=== PATIENT | female | born 1990 | race Caucasian/White ===

== ENCOUNTER 2021-02-23 14:34 | Emergency (ER) | payer MEDICAID, SELFPAY ==
[2021-02-23 14:35] VITALS: BP 185/109; PULSE 107; RESP 20; TEMP 36.6; O2SAT 99; BMI 58.3
[2021-02-23 14:38] VITALS: BP 185/109; PULSE 107; RESP 20; TEMP 36.6; O2SAT 99
[2021-02-23 15:13] VITALS: RESP 17; O2SAT 96; O2SAT 98
--- NOTE | 2021-02-23 15:13 | EKG12_ITS ---
Test Reason : SOB Blood Pressure : / mmHG Vent. Rate : 097 BPM Atrial Rate : 097 BPM P-R Int : 156 ms QRS Dur : 092 ms QT Int : 358 ms P-R-T Axes : 047 011 024 degrees QTc Int : 454 ms Normal sinus rhythm Minimal voltage criteria for LVH, may be normal variant Borderline ECG Confirmed by LEXI BORGES, MAKEDA ([id number]), makeup editor NATALIA DOOLEY ([id number]) on 03/01/2021 1:11:13 PM Referred By: Confirmed By:MAKEDA ELLIOTT MD
--- NOTE | 2021-02-23 15:16 | NURSING ---
NO OLD EKGS
--- NOTE | 2021-02-23 15:20 | RAD_ITS ---
STUDY: X-RAY CHEST REASON FOR EXAM: Female, 30 years old. SOB TECHNIQUE: Single AP portable view of the chest. COMPARISON: None. FINDINGS: EKG leads overlie the chest The lungs are clear and expanded. There is no demonstrated pleural abnormality. Normal size heart. Normal mediastinum and karen. Normal visualized pulmonary arteries. Normal visualized aortic arch and descending thoracic aorta. Normal visualized thoracic spine. Normal visualized ribs, clavicles, and shoulders. There is no demonstrated abnormality of the visualized soft tissue structures of the upper abdomen. RAD/Chest 1 View (Portable) IMPRESSION: Normal x-ray examination of the chest. Electronically Signed: Sergey Cortez MD at 15:31 EDT , Service support ,
[2021-02-23 15:38] VITALS: BP 162/81; PULSE 105; RESP 16; TEMP 36.6; O2SAT 96
[2021-02-23 16:03] VITALS: PULSE 114; RESP 16
[2021-02-23] MEDS: Ipratropium/Albuterol Sulfate 3 ML AMPUL.NEB INHALATION (16:03)
[2021-02-23] MEDS: MethylPREDNISolone 125 MG/2 ML Vial IV (16:07)
--- NOTE | 2021-02-23 16:15 | EX.ED.DYSGE1 ---
HPI History of Present Illness Chief Complaint: Shortness of Breath Informant: patient Onset/Context/Timing Onset: Weeks (1 week) Context: Gradual Onset Current Severity: Mild Maximum Severity: Moderate Narrative Narrative: Patient presents with a 1 week history of shortness of breath. She feels as if she is wheezing. She reports mild cough with rare sputum production. No fever or chills. No chest pain. Patient states she started lisinopril approximately 3 weeks ago. This the only new change that she can think of. She denies any throat tightness or tongue swelling. [facility] Medical History Hypertension Home Medications albuterol sulfate [Ventolin HFA] 1 - 2 puff INHALATION Q4H PRN PRN #1 inhaler 02/23/21 [Rx Last Taken Unknown] amlodipine 10 mg PO DAILY 02/23/21 [History Last Taken Unknown] hydroxyzine pamoate 25 mg PO BID 02/23/21 [History Last Taken Unknown] lisinopril 10 mg PO DAILY 02/23/21 [History Last Taken Unknown] prednisone 40 mg PO DAILY #8 tab 02/23/21 [Rx Last Taken Unknown] sertraline 100 mg PO DAILY 02/23/21 [History Last Taken Unknown] Allergy/AdvReac Type Severity Reaction Status Date / Time No Known Allergies Allergy Verified 02/23/21 14:38 Social History Smoking Status: Unknown if ever smoked [facility] ED Constitutional Constitutional ED: Denies chills or fever(s) Eyes Eyes: Denies change in vision ENT ENT ED: Denies sore throat Cardiovascular Cardiovascular: Denies chest pain Respiratory/Chest Respiratory/Chest: Reports cough and dyspnea Gastrointestinal Gastrointestinal: Denies abdominal pain, diarrhea, nausea or vomiting Genitourinary Genitourinary ED: Denies dysuria Musculoskeletal Musculoskeletal: Denies back pain Integumentary Denies rash Neurologic Neurologic: Denies headache(s) or weakness Psychiatric Psychiatric: Denies anxiety or depression Endocrine Endocrinology: Denies polydipsia or polyuria Allergic/Immunologic Allergic/Immunologic ED: Denies urticaria EXAM Physical Exam Const Vital Signs: 02/23/21 14:35 02/23/21 14:38 02/23/21 14:57 Temperature 97.9 F 97.9 F Temperature Source Temporal Temporal Pulse Rate 107 H 107 H Respiratory Rate 20 H 20 H Respiratory Effort Short of Breath Respiratory Depth Normal Respiratory Pattern Blood Pressure 185/109 H 185/109 H Blood Pressure Mean 134 134 Pulse Ox 99 99 Oxygen Delivery Method Room Air Room Air 02/23/21 15:13 02/23/21 15:38 02/23/21 16:03 Temperature 97.9 F Temperature Source Temporal Pulse Rate 105 H 114 H Respiratory Rate 17 16 16 Respiratory Effort Respiratory Depth Respiratory Pattern Normal Blood Pressure 162/81 H Blood Pressure Mean 108 Pulse Ox 96 96 Oxygen Delivery Method Room Air Room Air Positive well nourished and well developed General Appearance ED: well developed HEENT Reports normocephalic and head/scalp atraumatic Eyes PERRL and EOMs intact bilaterally Neck supple Chest Wall inspection of chest normal and palpation of chest normal Resp normal respiratory effort Auscultation: diminished lung sounds Cardio regular rhythm Rate: tachycardic GI normal to inspection, nondistended, normoactive bowel sounds Palpation: soft Extremity normal to inspection Neuro oriented x3 and no sensory deficits noted Sensorium / Orientation: alert Motor Exam: strength 5/5 throughout Psych mental status grossly normal Skin no rashes or lesions noted MDM MDM MDM Narrative Medical decision making narrative: Patient was given Solu-Medrol and a DuoNeb treatment. Labs, chest x-ray, EKG, Covid swab obtained. Lab Data Attestation: I reviewed the patient's lab results. Labs: Laboratory Results - last 24 hr 02/23/21 02/23/21 02/23/21 16:05 16:05 16:05 WBC 8.1 RBC 5.78 H Hgb 13.3 Hct 43.7 MCV 75.6 L MCH 23.0 L MCHC 30.4 L RDW Std Deviation 43.8 RDW Coeff of Nai 16.4 H Plt Count 283 MPV 10.9 Immature Gran % (Auto) 0.600 Neut % (Auto) 64.2 Lymph % (Auto) 27.0 Cherry % (Auto) 6.2 Eos % (Auto) 1.6 Baso % (Auto) 0.4 Absolute Neuts (auto) 5.2 Absolute Lymphs (auto) 2.18 Nucleated RBC % 0 D-Dimer Quant (PE/DVT) 0.34 Sodium 137 Potassium 3.5 Chloride 105 Carbon Dioxide 27.0 Anion Gap 5 BUN 9 Creatinine 0.56 Estim Creat Clear Calc 130.98 Est GFR (MDRD) Af Amer 163 Est GFR (MDRD) Non-Af 135 BUN/Creatinine Ratio 16.2 Glucose 103 Calcium 8.8 Troponin I High Sens 3.6 B-Natriuretic Peptide Serum , Qual 02/23/21 02/23/21 16:05 16:05 WBC RBC Hgb Hct MCV MCH MCHC RDW Std Deviation RDW Coeff of Nai Plt Count MPV Immature Gran % (Auto) Neut % (Auto) Lymph % (Auto) Cherry % (Auto) Eos % (Auto) Baso % (Auto) Absolute Neuts (auto) Absolute Lymphs (auto) Nucleated RBC % D-Dimer Quant (PE/DVT) Sodium Potassium Chloride Carbon Dioxide Anion Gap BUN Creatinine Estim Creat Clear Calc Est GFR (MDRD) Af Amer Est GFR (MDRD) Non-Af BUN/Creatinine Ratio Glucose Calcium Troponin I High Sens B-Natriuretic Peptide 7.0 Serum , Qual NEGATIVE Radiography Chest X-Ray - ED: 1 View, Read by ED Physician, Normal, Heart, Lungs and Mediastinum Diagnostic Testing: Radiology Impression Chest X-Ray 02/23/21 15:20 IMPRESSION: Normal x-ray examination of the chest. Electronically Signed: Sergey Cortez MD at 15:31 EDT , Service support , EKG Initial EKG: Attestation: I personally reviewed and interpreted this EKG as follows: Interpretation: Sinus Rhythm (Sinus at 97 with no acute ischemia.) Treatment and Re-Evaluation Comments:: Patient was tachycardic on my initial evaluation with heart rate in the 120s. This is improved after treatment. Patient does report subjective improvement in her shortness of breath. Lungs are clear to auscultation. Test results discussed with her. Chest x-ray per my interpretation reveals no acute infiltrate. Radiologist interpretation is reviewed. Patient be treated with a burst of steroids and an albuterol inhaler. She states her family doctor already told her to stop the lisinopril. Discharge Plan Triage Chief Complaint: Shortness of Breath ED Provider: Jennifer Beck Dx/Rx/DC Orders Clinical Impression: Bronchitis with bronchospasm Instructions: ED Bronchitis with Wheezing (Adult) Prescriptions: New prednisone 20 mg tablet 40 mg PO DAILY Qty: 8 RF: 0 albuterol sulfate [Ventolin HFA] 1 INHALER inhaler 1 - 2 puff inhalation Q4H PRN PRN (Reason: Wheezing) Qty: 1 RF: 0 No Action sertraline 100 mg tablet 100 mg PO DAILY RF: 0 amlodipine 10 mg tablet 10 mg PO DAILY RF: 0 lisinopril 10 mg tablet 10 mg PO DAILY RF: 0 hydroxyzine pamoate 25 mg capsule 25 mg PO BID RF: 0 Primary Care Provider: Kye Simon Referrals: Kye Simon DO [Primary Care Provider] - 1 Week Disposition Disposition: Home, Self Care
[2021-02-23 16:17] LABS: Absolute Lymphocyte Count 2.18 X10^3/uL (0.83-4.51); Absolute Neutrophil Count 5.2 X10^3/uL (2.0-7.7); Basophil# 0.03 X10^3/uL; Basophil% 0.4 % (0-1); Eosinophil# 0.13 X10^3/uL; Eosinophils% 1.6 % (0-5); Hematocrit 43.7 % (37-47); Hemoglobin 13.3 g/dL (12.0-15.0); Lymphocyte # 2.18 X10^3/ul (0.83-4.51); Mean Corp Hgb Conc 30.4 g/dL (32-36); Mean Corpuscular Volume 75.6 fL (81-99); Mean Platelet Vol. 10.9 fl (6.2-12.0); Monocyte% 6.2 % (0-10); NRBC Flagged by Analyzer 0 % (0-5); Neutrophil # 5.18 X10^3/uL (2.7-7.7); Neutrophil % 64.2 % (47-70); Platelet Count 283 K/mm3 (150-450); RBC Distribution Width CV 16.4 % (11.6-14.6); RBC Distribution Width SD 43.8 fl (35.1-43.9); Red Blood Count 5.78 M/mm3 (4.2-5.4); White Blood Count 8.1 K/mm3 (4.4-11.0)
[2021-02-23 16:32] LABS: D-Dimer Quantitative (DVT/PE) 0.34 FEU/ug/m (0.27-0.49)
[2021-02-23 16:34] LABS: Anion Gap 5 (5-15); BUN 9 mg/dL (7-18); BUN/Creat Ratio 16.2 RATIO (10-20); Calcium,Total 8.8 mg/dL (8.5-10.1); Chloride 105 mmol/L (98-107); Creatinine, Serum 0.56 mg/dL (0.55-1.02); EST Glomerular Filtration Rate 135 mL/min (>60); Est Glom Filt Rate - Afr Amer 163 mL/min (>60); Estimated Creatinine Clearance 130.98 ml/min; Glucose 103 mg/dL (74-106); Potassium 3.5 mmol/L (3.5-5.1); Sodium Level 137 mmol/L (136-145); Troponin-I HS 3.6 pg/mL (3.0-53.7)
[2021-02-23 17:16] LABS: Internal QC Validated? YES +Cl - CLEAR BKGD; Pregnancy, Serum, hCG Quali. NEGATIVE Negative
[2021-02-23 17:40] VITALS: BP 164/79; PULSE 81; RESP 22; O2SAT 97
--- NOTE | 2021-02-23 17:41 | ED.RN ---
THIS NURSE REVIEWED D/C INSTRUCTIONS WITH PT. PT VERBALIZED UNDERSTANDING OF INSTRUCTIONS. IV D/C. IV CATHETER INTACT. PT TOLERATED WELL. PT DENIES FURTHER NEEDS OR QUESTIONS AT THIS TIME. PT AMBULATES FROM ROOM ON OWN WITHOUT ASSISTANCE FROM STAFF
== END 2021-02-23 17:42 | disposition home or self-care (01) ==
PROVIDERS: Emergency Provider Emergency Medicine; PCP Student in an Organized Health Care Education/Training Program
DX: J40 Bronchitis, not specified as acute or chronic (principal); I10 Essential (primary) hypertension; Z79.899 Other long term (current) drug therapy
CPT/HCPCS: 71045; 80048; 83880; 84484; 84703; 85025; 85379; 87426; 93005; 94640; 94760; 96374; 99284

== ENCOUNTER 2021-10-19 07:44 | Outpatient (CLI) | payer MEDICAID, SELFPAY ==
[2021-10-19 10:14] LABS: Anion Gap 8 (5-15); BUN 9 mg/dL (7-18); BUN/Creat Ratio 13.5 RATIO (10-20); Calcium,Total 8.9 mg/dL (8.5-10.1); Chloride 105 mmol/L (98-107); Creatinine, Serum 0.67 mg/dL (0.55-1.02); EST Glomerular Filtration Rate 108 mL/min (>60); Est Glom Filt Rate - Afr Amer 131 mL/min (>60); Glucose 111 mg/dL (74-106); Potassium 3.6 mmol/L (3.5-5.1); Sodium Level 139 mmol/L (136-145)
== END 2021-10-19 23:59 | disposition home or self-care (01) ==
LOC: LAB 07:45
PROVIDERS: PCP Student in an Organized Health Care Education/Training Program; Visit Provider Student in an Organized Health Care Education/Training Program
DX: R06.81 Apnea, not elsewhere classified (principal); R06.83 Snoring; I10 Essential (primary) hypertension; G25.0 Essential tremor
CPT/HCPCS: 36415; 80048

== ENCOUNTER → 2022-07-31 | Outpatient (CLI) | payer MEDICAID, SELFPAY ==
[2022-07-31 12:46] LABS: Anion Gap 3 (5-15); BUN 9 mg/dL (7-18); BUN/Creat Ratio 15.7 RATIO (10-20); Calcium,Total 8.7 mg/dL (8.5-10.1); Chloride 106 mmol/L (98-107); Cholesterol 157 mg/dL (200); Creatinine, Serum 0.57 mg/dL (0.55-1.02); EST Glomerular Filtration Rate 129 mL/min (>60); Est Glom Filt Rate - Afr Amer 156 mL/min (>60); Glucose 103 mg/dL (74-106); High Density Lipoprotein 42 mg/dL; Potassium 3.9 mmol/L (3.5-5.1); Sodium Level 137 mmol/L (136-145); Triglycerides 94 mg/dL; Very Low Density Lipoprotein 19 mg/dL (5-40)
[2022-07-31 12:54] LABS: Hemoglobin A1c 5.6 % (3.8-5.6)
== END | disposition home or self-care (01) ==
LOC: LAB 11:11
PROVIDERS: PCP Student in an Organized Health Care Education/Training Program; Visit Provider Student in an Organized Health Care Education/Training Program
DX: Z00.00 Encounter for general adult medical examination without abnormal findings (principal); R73.03 Prediabetes; Z13.220 Encounter for screening for lipoid disorders; I10 Essential (primary) hypertension
CPT/HCPCS: 36415; 80048; 80061; 83036

== ENCOUNTER → 2023-10-03 | Outpatient (CLI) | payer MEDICAID, SELFPAY ==
--- OUTSIDE RECORDS SUMMARY | 2023-10-03 11:46 | XMS RPT_ITS | CCD ---
Author Name Unknown Address [address] [place] [address] Organization [facility] Care Team Providers Care Diet Kitchen Cook Name Role Phone Maribell Maher DO Primary Care Provider [phone] SHARA GRAYSON Referring Unavailable MARIBELL MAHER Primary Care Unavailable SHARA GRAYSON Referring Unavailable MARIBELL MAHER Primary Care Unavailable ROMAR DO, DR REYNA Primary Care Physician [phone] ROMAR DO, DR REYNA Attending Unavailable ROMAR DO, DR REYNA Primary Care Unavailable ROMAR DO, DR REYNA Attending Unavailable ROMAR DO, DR REYNA Primary Care Unavailable ROMAR DO, DR REYNA Attending Unavailable ROMAR DO, DR REYNA Primary Care Unavailable ROMAR DO, DR REYNA Attending Unavailable ROMAR DO, DR REYNA Primary Care Unavailable ROMAR DO, DR REYNA Attending Unavailable ROMAR DO, DR REYNA Primary Care Unavailable ROMAR DO, DR REYNA Attending Unavailable ROMAR DO, DR REYNA Primary Care Unavailable ROMAR DO, DR REYNA Attending Unavailable ROMAR DO, DR REYNA Primary Care Unavailable ROMAR DO, DR REYNA Attending Unavailable ROMAR DO, DR REYNA Primary Care Unavailable SHARA GRAYSON Referring Unavailable MARIBELL MAHER Primary Care Unavailable SHARA GRAYSON Attending Unavailable MARIBELL MAHER Primary Care Unavailable SHARA GRAYSON Referring Unavailable SHARA GRAYSON Attending Unavailable MARIBELL MAHER Primary Care Unavailable SHARA GRAYSON Attending Unavailable MARIBELL MAHER Primary Care Unavailable Allergies Allergy Classification Reported Allergen(s) Allergy Type Date of Onset Reaction(s) Facility (5 sources) Lisinopril; Translations: [lisinopril] Drug Allergy Dyspnea (finding) [facility] Medications Current Medications Medication Drug Class(es) Dates Sig (Normalized) Sig (Original) DME [facility]IS[facility]aneous (5 sources) Start: 07-04-2023 DME [facility]ISCellaneous See Instructions, Libre3 Sensors #2 sensors. Apply sensor to arm once every 14 days to monitor blood sugar. DX E11.69, # 2 EA, 11 Refill(s), Pharmacy: [facility]/pharmacy #[id number], 165.2, cm, 07/04/23 10:26:00 EST, Height, 152.6, kg, 07/04/23 10:26:00 EST, Dosing Weight Start Date: 07/04/23 Status: Ordered folic acid 1 mg oral tablet (7 sources) Start: 09-30-2023 take 1 tablet by mouth once daily folic acid 1 mg tablet Indications: Psoriasis , Polyarticular psoriatic arthritis (HCC) TAKE 1 TABLET BY MOUTH EVERY DAY 90 tablet 1 09/30/2023 Active Completed/Discontinued Medications Medication Drug Class(es) Dates Sig (Normalized) Sig (Original) cholecalciferol 1.25 mg oral capsule (10 sources) Vitamin D Start: 04-17-2023 End: 07-08-2023 cholecalciferol, Vitamin D3, (VITAMIN D3) 1,250 mcg (50,000 unit) cap capsule Indications: vitamin D deficiency TAKE VITAMIN D 50,000 UNITS ONCE EVERY WEEK X 12 WEEKS THEN 2000 UNITS DAILY OVER THE COUNTER AFTER 12 capsule 0 07/08/2023 Active Problems Problem Classification Problem Date Documented Da te Episodic/Chronic Anxiety disorders (5 sources) Generalized anxiety disorder 07-07-2020 Chronic Conditions associated with dizziness or vertigo (5 sources) Dizziness 07-07-2020 Episodic Diabetes mellitus with complications (5 sources) Type 2 diabetes mellitus in obese 05-28-2023 Chronic Disorders of lipid metabolism (3 sources) Hyperlipidemia 09-08-2023 Chronic Disorders usually diagnosed in infancy, childhood, or adolescence (5 sources) Autism spectrum disorder 11-02-2021 Chronic Essential hypertension (7 sources) Hypertensive disorder; Translations: [Essential (primary) hypertension] Onset: 09-04-2023 10-06-2020 Chronic Fever of unknown origin (3 sources) Intermittent fever 08-28-2023 Episodic Headache; including migraine (5 sources) Headache 07-07-2020 Episodic Malaise and fatigue (5 sources) Fatigue 07-07-2020 Episodic Menstrual disorders (10 sources) Menorrhagia 07-07-2020 Chronic Mood disorders (5 sources) Recurrent major depressive episodes, moderate 07-07-2020 Chronic Nutritional deficiencies (4 sources) Vitamin D deficiency; Translations: [Vitamin D deficiency, unspecified] Onset: 04-11-2023 04-02-2023 Chronic Other and ill-defined heart disease (5 sources) Left ventricular hypertrophy 10-06-2020 Chronic Other ear and sense organ disorders (5 sources) Impacted cerumen 09-22-2020 Episodic Other ear and sense organ disorders (5 sources) Tinnitus 07-07-2020 Episodic Other female genital disorders (5 sources) Vaginal discharge 07-07-2020 Episodic Other gastrointestinal disorders (5 sources) Constipation 07-07-2020 Episodic Other hereditary and degenerative nervous system conditions (5 sources) Essential tremor 08-24-2021 Chronic Other inflammatory condition of skin (2 sources) Psoriasis; Translations: [Psoriasis, unspecified] 09-05-2023 Chronic Other inflammatory condition of skin (2 sources) Psoriatic arthritis; Translations: [Other psoriatic arthropathy] 09-05-2023 Chronic Other inflammatory condition of skin (1 source) Other psoriatic arthropathy; Translations: [Polyarticular psoriatic arthritis (HCC)] Onset: 09-05-2023 Chronic Other inflammatory condition of skin (1 source) Psoriasis, unspecified; Translations: [Psoriasis] Onset: 09-05-2023 Chronic Other injuries and conditions due to external causes (5 sources) Motion sickness 02-08-2022 Episodic Other lower respiratory disease (5 sources) Snoring 08-24-2021 Episodic Other nervous system disorders (5 sources) Carpal tunnel syndrome 04-27-2021 Chronic Other nervous system disorders (5 sources) Poor concentration 11-17-2020 Chronic Other non-traumatic joint disorders (8 sources) Multiple joint pain; Translations: [Pain in unspecified joint] 04-02-2023 Episodic Other non-traumatic joint disorders (2 sources) Pain in unspecified joint; Translations: [Pain in joint, multiple sites] Onset: 04-11-2023 Episodic Other non-traumatic joint disorders (5 sources) Shoulder pain 01-29-2021 Episodic Other nutritional; endocrine; and metabolic disorders (5 sources) Body mass index 40+ - severely obese 08-24-2021 Chronic Other nutritional; endocrine; and metabolic disorders (2 sources) Morbid obesity 01-02-2023 Chronic Other skin disorders (5 sources) Acquired disorder of keratinization 10-06-2020 Episodic Other skin disorders (5 sources) Pigmented skin lesion of uncertain nature 11-02-2021 Episodic Other skin disorders (5 sources) Skin tag 09-22-2020 Episodic Other upper respiratory disease (5 sources) Pain in throat 2020 Episodic Residual codes; unclassified (5 sources) Obstructive sleep apnea of adult 11-02-2021 Chronic Residual codes; unclassified (5 sources) Flushing 05-28-2023 Episodic Spondylosis; intervertebral disc disorders; other back problems (1 source) Low back pain; Translations: [Low back pain, unspecified back pain laterality, unspecified chronicity, unspecified whether sciatica present] 09-05-2023 Episodic Substance-related disorders (5 sources) Marijuana user 01-02-2023 Episodic Unclassified (5 sources) Pain of knee region 07-18-2022 Unclassified (5 sources) Patient encounter status 07-15-2022 Unclassified (1 source) Low back pain, unspecified back pain laterality, unspecified chronicity, unspecified whether sciatica present; Translations: [Low back pain, unspecified back pain laterality, unspecified chronicity, unspecified whether sciatica present] Onset: 09-05-2023 Results Test Name Value Interpretation Reference Range Facil ity Vital Signs Date Time Vital Sign Value Performing Clinician Facility 09-05-2023 09:52-0500 Body height 162.6 cm Shara Grayson MD Work Phone: [facility] 09-05-2023 09:52-0500 Body temperature 98.29 [degF] Shara Grayson MD Work Phone: [facility] 09-05-2023 09:52-0500 Body weight 158.76 kg Shara Grayson MD Work Phone: [facility] 09-05-2023 09:52-0500 Diastolic blood pressure 82 mm[Hg] Shara Grayson MD Work Phone: [facility] 09-05-2023 09:52-0500 Heart rate 97 /min Shara Grayson MD Work Phone: [facility] 09-05-2023 09:52-0500 Respiratory rate 14 /min Shara Grayson MD Work Phone: [facility] 09-05-2023 09:52-0500 Systolic blood pressure 142 mm[Hg] Shara Grayson MD Work Phone: [facility] 07-04-2023 11:52-0500 Body height 165.[address] MARIBELL MAHER DO [facility] 07-04-2023 11:52-0500 Body weight 55.92 kg/m2 DR MARIBELL MAHER DO [facility] 07-04-2023 11:52-0500 Body weight 152.[address] MARIBELL MAHER DO [facility] Encounters Encounter Date Encounter Type Care Provider Facility Start: 09-29-2023 Refill Mame linton PA-C Work Phone: [facility] [place] [facility] Procedures Date Procedure Procedure Detail Performing Clinician Tonsillectomy DR MARIBELL MAHER DO Plan of Treatment Date Care Activity Detail Author Start: 09-22-2030 Urine microalbumin profile DTaP,Tdap,Td Vaccine (7 - Td or Tdap) [facility] Start: 09-05-2023 End: 12-05-2023 25-hydroxyvitamin D3 [Mass/volume] in Serum or Plasma [facility] Work Phone: Immunizations Immunization Date Immunization Notes Care Provider Fa vickity 09-22-2020 tetanus toxoid, redu doe diphtheria toxoid, and acellular pertussis vaccine, adsorbed; Translations: [Boostrix (Tdap)] DR MARIBELL MAHER DO [facility] 10-21-2002 measles/mumps/rubell a virus vaccine DR MARIBELL MAHER DO [facility] 11-14-1994 poli[address] vaccine, inactivated DR MARIBELL MAHER DO [facility] 02-17-1991 measles/mumps/rubell a virus vaccine DR MARIBELL MAHER DO [facility] 02-17-1991 poliovirus vaccine, inactivated DR MARIBELL MAHER DO [facility] 1989 poli[address] vaccine, inactivated DR MARIBELL MAHER DO [facility] 1989 poliovirus vaccine, inactivated DR MARIBELL MAHER DO [facility] Payers Date Payer Category Payer Medicaid [facility] MEDICAID [id number] 2022-Present [phone] [address] [place] [address] Medicaid [id number] 2022 Medicaid [id number] 1989 Unknown [id number] 1989 Unknown [id number] 1989 Unknown [id number] 1989 Unknown [id number] 1989 Unknown [id number] 1989 Unknown [id number] 1989 Unknown [id number] 1989 Unknown [id number] Social History Date Type Detail Facility Tobacco smoking stat us NHIS Tobacco smoking consumption unknown [facility] Start: 04-02-2023 End: 09-05-2023 History of Social function [facility] Start: 04-02-2023 End: 09-05-2023 Area Deprivation Index [facility] National Score (1-10 0), lower number is lower risk 57 [facility] Start: 1990 Sex Assigned At Not on file [facility] Start: 07-05-2021 End: 09-05-2023 Tobacco smoking status Never smoked tobacco (finding) [facility] Sex Assigned At Sex [facility] Start: 09-05-2023 Tobacco use and exposure Smoke less tobacco non-user [facility] Start: 09-05-2023 Alcohol intake Lifetime non-d jhoana (finding) [facility] Clinical Notes 04-02-2023 to 09-29-2023 Telephone Encounter - Florence Farooq LPN - 09/29/2023 4:39 PM ESTTelephone Encounter - Tressa Hernadez MA - 09/29/2023 3:59 PM ESTTelephone Encounter - Mame Holman PA-C - 09/29/2023 3:52 PM EST Note Date & Type Note Facility 09-29-2023 Miscellaneous Notes Pharmacy requesting the following refill. Pharmacy comment: REQUEST FOR 90 DAYS PRESCRIPTION. DX Code Needed. Requested Prescriptions Pending Prescriptions Disp Refills methotrexate 2.5 mg tablet [Pharmacy Med Name: METHOTREXATE 2.5 MG TABLET] 72 tablet 1 Sig: TAKE 6 TABLETS BY MOUTH ONE TIME A WEEK. DIRECTED. folic acid 1 mg tablet [Pharmacy Med Name: FOLIC ACID 1 MG TABLET] 90 tablet 1 Sig: TAKE 1 TABLET BY MOUTH EVERY DAY Patient last appointment: 09/10/2023 Next Appointment: 10/15/2023 Patient Phone numbers: [phone] (home) Request is for script(s) to be escript to pharmacy. [facility]/pharmacy #[id number] - [place] [address] - [address] [phone] [id number] Florence Farooq LPN documented in this encounter [facility] 09-29-2023 Miscellaneous Notes Lvm and gave the info. Please make sure she knows to stop 50,000 units weekly. Start 2000 units daily over the counter Pharmacy faxed requesting the following refill. Requested Prescriptions Pending Prescriptions Disp Refills cholecalciferol, Vitamin D3, (VITAMIN D3) 1,250 mcg (50,000 unit) cap capsule [Pharmacy Med Name: VITAMIN D3 1,250 MCG CAPSULE] 12 capsule 0 Sig: TAKE 1 CAPSULE BY MOUTH ONCE EVERY WEEK X 12 WEEKS THEN 2000 UNITS DAILY OVER THE COUNTER AFTER Patient last appointment: 09/05/2023 Next Appointment: 10/19/2023 Patient Phone numbers: [phone] (home) Request is for script(s) to be escript to pharmacy. Tressa Hernadez MA documented in this encounter [facility] 09-10-2023 Note HNO ID: [id number] Author: SHARA GRAYSON MD Service: ? Author Type: Physician Type: Progress Notes Filed: 09/10/2023 11:12 Note Text: RHEUMATOLOGY PROGRESS NOTE Patient is here for a follow up visit for No chief complaint on file. HPI: Sandra Carvajal is a 33 year old female who presents joint pain She started with MTX and had severe side effects, nausea, vomiting. Therefore stopped. Still has psoriasis, low back pain. Back pain is radiating. Also has knee pain, hand pain and elbow pain, more in the mornings wit some swelling and stiffness. Brief Rheumatological history - joint pain. Joint pain, several years. No preceding trauma, health issues. Pain over knees, elbows, knuckles. H/o carpal tunnel? No swelling. Pain is worse towards the end of the day. She has tried OTC ibuprofen, heat pad. Chronic back pain. Radiating. Psoriasis, uses creams. Saw derm. Family h/o autoimmune disease - none Smoking - never Rheumatology REVIEW OF SYSTEMS: Constitutional: Recent Weight Change: No Fatigue: YES Fever: No Night sweats: No Heent: Alopecia: No H/o Inflammatory eye disease (iritis/scleritis): No Hearing loss: No Frequent sinusitis: No Oral ulcers: No Sicca: YES dry eyes Parotid swelling: No Hoarseness: No Dysphagia: No Heme/lymph: Lymphadenopathy: No Hematological abnormalities (anemia, thrombocytopenia, leukopenia): No Abnormal bleeding: No Skin: Malar or discoid lesions: No Photosensitivity: No Other rashes: No Raynaud's phenomenon: No Hives: No Tightness: No Nodules/bumps: No Easy Bruising: No Nail changes: No H/o psoriasis: No Gastroenterology: Nausea: No Vomiting: No Change in bowel movements: YES diarrhea. Heartburn: No Respiratory: Dry cough/SOB: No Cardiovascular: Pain in chest: No Musculoskeletal: Per HPI Genitourinary: Vaginal dryness: No Rash/ulcers: No Neurological: Headaches: YES Sensitivity or pain of hands and/or feet: No Psychiatry: Anxiety: YES Depression: YES Poor sleep: YES mainly due to knee pain. H/o loss: No H/o thrombosis: No Increased susceptibility to infection: No No past medical history on file. PAST SURGICAL HISTORY Procedure Laterality Date EXTRACTION ERUPTED TOOTH/EXR [place]eth TONSILLECTOMY AND ADENOIDECTOMY History Review: I have reviewed and modified as needed, the following during this visit: Allergies, Past Medical History, Past Surgical History, Past Family History, Past Social History. There were no vitals taken for this visit. Physical Exam GENERAL: Well appearing, alert, comfortable, in no acute distress, well-hydrated, well nourished. HEENT: Negative for external ears normal. Canals are clear. Both TMs visualized and are normal. Eye Exam normal. External nose normal, no nasal ulcer or throat ulcer. NECK: NECK Supple, no adenopathy; thyroid symmetric, normal size, no bruits CARDIAC: regular rate and rhythm, No murmur asculated., and Equal peripheral pulses RESPIRATORY: Lungs clear to auscultation. No wheezing, rhonchi, rales VASCULAR: RRR without murmur, gallop, or rubs. No ectopy. NEURO: Motor and sensory exam normal MOTOR: Normal; including tone, gait, stressed gait, power and coordination. SKIN: Negative for alopecia, skin rash, malar rash, skin lesion, skin ulcer, pits, thickening, color changes, telangiectasias, nail changes, nail ridging, nail pitting, onycholysis MUSCULOSKELETAL: DIPS: Normal PIPS: Normal MCPs: Normal Wrists: Normal Elbows: Normal Shoulders: Normal C-Spine: Normal Hips: Normal Knees: Normal Ankles: Normal MTPs / Toes: Normal Arches: Normal Lab Results: No results found for this basename: gluc, K, NA, CHLOR, CO2, CREAT, BUN, ANION, CA, TPROT, ALB, TBILI, ALKPHOS, AST,ALT,WBC,HB,PLT,wsr,crp Serology: ANTWON, RF neg Radiology: Assessment and Plan (M25.50) Pain in joint, multiple sites (primary encounter diagnosis) 33-year-old female is here for chronic pain. She has personal history of psoriasis which is well controlled. Denies joint swelling, uveitis, colitis or strong family history of autoimmune diseases. Likelihood of psoriatic arthritis cannot be ruled out however we will evaluate with below labs and x-rays. ANTWON and rheumatoid factor have been negative. We also discussed about proper sleep, good mood, regular exercise and healthy diet. PT and pain management referral for low back pain Cannot rule of PsA. Side effect to MTX. Can do SSZ. Discussed risks and benefits. Sending info. No orders found for this visit on 09/10/23. No orders of the defined types were placed in this encounter. No follow-ups on file. Shara Grayson MD [facility] 09-10-2023 History of Presen t illness Narrative RHEUMATOLOGY PROGRESS NOTE Patient is here for a follow up visit for No chief complaint on file. HPI: Sandra Carvajal is a 33 year old female who presents joint pain She started with MTX and had severe side effects, nausea, vomiting. Therefore stopped. Still has psoriasis, low back pain. Back pain is radiating. Also has knee pain, hand pain and elbow pain, more in the mornings wit some swelling and stiffness. Brief Rheumatological history - joint pain. Joint pain, several years. No preceding trauma, health issues. Pain over knees, elbows, knuckles. H/o carpal tunnel? No swelling. Pain is worse towards the end of the day. She has tried OTC ibuprofen, heat pad. Chronic back pain. Radiating. Psoriasis, uses creams. Saw derm. Family h/o autoimmune disease - none Smoking - never Rheumatology REVIEW OF SYSTEMS: Constitutional: Recent Weight Change: No Fatigue: YES Fever: No Night sweats: No Heent: Alopecia: No H/o Inflammatory eye disease (iritis/scleritis): No Hearing loss: No Frequent sinusitis: No Oral ulcers: No Sicca: YES dry eyes Parotid swelling: No Hoarseness: No Dysphagia: No Heme/lymph: Lymphadenopathy: No Hematological abnormalities (anemia, thrombocytopenia, leukopenia): No Abnormal bleeding: No Skin: Malar or discoid lesions: No Photosensitivity: No Other rashes: No Raynaud's phenomenon: No Hives: No Tightness: No Nodules/bumps: No Easy Bruising: No Nail changes: No H/o psoriasis: No Gastroenterology: Nausea: No Vomiting: No Change in bowel movements: YES diarrhea. Heartburn: No Respiratory: Dry cough/SOB: No Cardiovascular: Pain in chest: No Musculoskeletal: Per HPI Genitourinary: Vaginal dryness: No Rash/ulcers: No Neurological: Headaches: YES Sensitivity or pain of hands and/or feet: No Psychiatry: Anxiety: YES Depression: YES Poor sleep: YES mainly due to knee pain. H/o loss: No H/o thrombosis: No Increased susceptibility to infection: No No past medical history on file. PAST SURGICAL HISTORY Procedure Laterality Date EXTRACTION ERUPTED TOOTH/EXR [place]eth TONSILLECTOMY & ADENOIDECTOMY <AGE 12 History Review: I have reviewed and modified as needed, the following during this visit: Allergies, Past Medical History, Past Surgical History, Past Family History, Past Social History. There were no vitals taken for this visit. Physical Exam GENERAL: Well appearing, alert, comfortable, in no acute distress, well-hydrated, well nourished. HEENT: Negative for external ears normal. Canals are clear. Both TMs visualized and are normal. Eye Exam normal. External nose normal, no nasal ulcer or throat ulcer. NECK: NECK Supple, no adenopathy; thyroid symmetric, normal size, no bruits CARDIAC: regular rate and rhythm, No murmur asculated., and Equal peripheral pulses RESPIRATORY: Lungs clear to auscultation. No wheezing, rhonchi, rales VASCULAR: RRR without murmur, gallop, or rubs. No ectopy. NEURO: Motor and sensory exam normal MOTOR: Normal; including tone, gait, stressed gait, power and coordination. SKIN: Negative for alopecia, skin rash, malar rash, skin lesion, skin ulcer, pits, thickening, color changes, telangiectasias, nail changes, nail ridging, nail pitting, onycholysis MUSCULOSKELETAL: DIPS: Normal PIPS: Normal MCPs: Normal Wrists: Normal Elbows: Normal Shoulders: Normal C-Spine: Normal Hips: Normal Knees: Normal Ankles: Normal MTPs / Toes: Normal Arches: Normal Lab Results: No results found for this basename: gluc, K, NA, CHLOR, CO2, CREAT, BUN, ANION, CA, TPROT, ALB, TBILI, ALKPHOS, AST,ALT,WBC,HB,PLT,wsr,crp Serology: ANTWON, RF neg Radiology: Assessment and Plan (M25.50) Pain in joint, multiple sites (primary encounter diagnosis) 33-year-old female is here for chronic pain. She has personal history of psoriasis which is well controlled. Denies joint swelling, uveitis, colitis or strong family history of autoimmune diseases. Likelihood of psoriatic arthritis cannot be ruled out however we will evaluate with below labs and x-rays. ANTWON and rheumatoid factor have been negative. We also discussed about proper sleep, good mood, regular exercise and healthy diet. PT and pain management referral for low back pain Cannot rule of PsA. Side effect to MTX. Can do SSZ. Discussed risks and benefits. Sending info. No orders found for this visit on 09/10/23. No orders of the defined types were placed in this encounter. No follow-ups on file. Shara Grayson MD documented in this encounter [facility] 09-08-2023 Miscellaneous Notes Internal referral Pain mgt Conf #[id number] Reina Pollack documented in this encounter [facility] 09-05-2023 Note HNO ID: [id number] Author: SHARA GRAYSON MD Service: ? Author Type: Physician Type: Progress Notes Filed: 09/05/2023 10:37 Note Text: RHEUMATOLOGY PROGRESS NOTE Patient is here for a follow up visit for Patient presents with: Joint Pain HPI: Sandra Carvajal is a 33 year old female who presents joint pain Still has psoriasis, low back pain. Back pain is radiating. Also has knee pain, hand pain and elbow pain, more in the mornings wit some swelling and stiffness. Brief Rheumatological history - joint pain. Joint pain, several years. No preceding trauma, health issues. Pain over knees, elbows, knuckles. H/o carpal tunnel? No swelling. Pain is worse towards the end of the day. She has tried OTC ibuprofen, heat pad. Chronic back pain. Radiating. Psoriasis, uses creams. Saw derm. Family h/o autoimmune disease - none Smoking - never Rheumatology REVIEW OF SYSTEMS: Constitutional: Recent Weight Change: No Fatigue: YES Fever: No Night sweats: No Heent: Alopecia: No H/o Inflammatory eye disease (iritis/scleritis): No Hearing loss: No Frequent sinusitis: No Oral ulcers: No Sicca: YES dry eyes Parotid swelling: No Hoarseness: No Dysphagia: No Heme/lymph: Lymphadenopathy: No Hematological abnormalities (anemia, thrombocytopenia, leukopenia): No Abnormal bleeding: No Skin: Malar or discoid lesions: No Photosensitivity: No Other rashes: No Raynaud's phenomenon: No Hives: No Tightness: No Nodules/bumps: No Easy Bruising: No Nail changes: No H/o psoriasis: No Gastroenterology: Nausea: No Vomiting: No Change in bowel movements: YES diarrhea. Heartburn: No Respiratory: Dry cough/SOB: No Cardiovascular: Pain in chest: No Musculoskeletal: Per HPI Genitourinary: Vaginal dryness: No Rash/ulcers: No Neurological: Headaches: YES Sensitivity or pain of hands and/or feet: No Psychiatry: Anxiety: YES Depression: YES Poor sleep: YES mainly due to knee pain. H/o loss: No H/o thrombosis: No Increased susceptibility to infection: No No past medical history on file. PAST SURGICAL HISTORY Procedure Laterality Date EXTRACTION ERUPTED TOOTH/EXR [place]eth TONSILLECTOMY AND ADENOIDECTOMY History Review: I have reviewed and modified as needed, the following during this visit: Allergies, Past Medical History, Past Surgical History, Past Family History, Past Social History. BP 142/82 Pulse 97 Temp 36.8 ?C (98.3 ?F) (Temporal) Resp 14 Ht 162.6 cm (5' 4 ) Wt (!) 158.8 kg (350 lb) LMP (Approximate) BMI 60.08 kg/m? Physical Exam GENERAL: Well appearing, alert, comfortable, in no acute distress, well-hydrated, well nourished. HEENT: Negative for external ears normal. Canals are clear. Both TMs visualized and are normal. Eye Exam normal. External nose normal, no nasal ulcer or throat ulcer. NECK: NECK Supple, no adenopathy; thyroid symmetric, normal size, no bruits CARDIAC: regular rate and rhythm, No murmur asculated., and Equal peripheral pulses RESPIRATORY: Lungs clear to auscultation. No wheezing, rhonchi, rales VASCULAR: RRR without murmur, gallop, or rubs. No ectopy. NEURO: Motor and sensory exam normal MOTOR: Normal; including tone, gait, stressed gait, power and coordination. SKIN: Negative for alopecia, skin rash, malar rash, skin lesion, skin ulcer, pits, thickening, color changes, telangiectasias, nail changes, nail ridging, nail pitting, onycholysis MUSCULOSKELETAL: DIPS: Normal PIPS: Normal MCPs: Normal Wrists: Normal Elbows: Normal Shoulders: Normal C-Spine: Normal Hips: Normal Knees: Normal Ankles: Normal MTPs / Toes: Normal Arches: Normal Lab Results: No results found for this basename: gluc, K, NA, CHLOR, CO2, CREAT, BUN, ANION, CA, TPROT, ALB, TBILI, ALKPHOS, AST,ALT,WBC,HB,PLT,wsr,crp Serology: ANTWON, RF neg Radiology: Assessment and Plan (M54.50) Low back pain, unspecified back pain laterality, unspecified chronicity, unspecified whether sciatica present (primary encounter diagnosis) (M25.50) Pain in joint, multiple sites (E55.9) Vitamin D deficiency (L40.9) Psoriasis (L40.59) Polyarticular psoriatic arthritis (HCC) 33-year-old female is here for chronic pain. She has personal history of psoriasis which is well controlled. Denies joint swelling, uveitis, colitis or strong family history of autoimmune diseases. Likelihood of psoriatic arthritis cannot be ruled out however we will evaluate with below labs and x-rays. ANTWON and rheumatoid factor have been negative. We also discussed about proper sleep, good mood, regular exercise and healthy diet. PT and pain management referral for low back pain Cannot rule of PsA. Starting MTX. Risks and benefits explained. Office Visit on 09/05/23 BLOOD TB SCREEN, INCUBATED HEP B SURF AG SCRN HEP B SURF AB HEPATITIS C ANTIBODY IA WITH CONFIRMATION HEP B CORE AB TOTAL CBC + DIFF COMP METABO (more content not included)... [facility] 09-05-2023 Miscellaneous Notes Addended by: SHARA GRAYSON on: 09/05/2023 10:38 AM Modules accepted: Orders documented in this encounter [facility] 09-05-2023 History of Presen t illness Narrative RHEUMATOLOGY PROGRESS NOTE Patient is here for a follow up visit for Patient presents with: Joint Pain HPI: Sandra Carvajal is a 33 year old female who presents joint pain Still has psoriasis, low back pain. Back pain is radiating. Also has knee pain, hand pain and elbow pain, more in the mornings wit some swelling and stiffness. Brief Rheumatological history - joint pain. Joint pain, several years. No preceding trauma, health issues. Pain over knees, elbows, knuckles. H/o carpal tunnel? No swelling. Pain is worse towards the end of the day. She has tried OTC ibuprofen, heat pad. Chronic back pain. Radiating. Psoriasis, uses creams. Saw derm. Family h/o autoimmune disease - none Smoking - never Rheumatology REVIEW OF SYSTEMS: Constitutional: Recent Weight Change: No Fatigue: YES Fever: No Night sweats: No Heent: Alopecia: No H/o Inflammatory eye disease (iritis/scleritis): No Hearing loss: No Frequent sinusitis: No Oral ulcers: No Sicca: YES dry eyes Parotid swelling: No Hoarseness: No Dysphagia: No Heme/lymph: Lymphadenopathy: No Hematological abnormalities (anemia, thrombocytopenia, leukopenia): No Abnormal bleeding: No Skin: Malar or discoid lesions: No Photosensitivity: No Other rashes: No Raynaud's phenomenon: No Hives: No Tightness: No Nodules/bumps: No Easy Bruising: No Nail changes: No H/o psoriasis: No Gastroenterology: Nausea: No Vomiting: No Change in bowel movements: YES diarrhea. Heartburn: No Respiratory: Dry cough/SOB: No Cardiovascular: Pain in chest: No Musculoskeletal: Per HPI Genitourinary: Vaginal dryness: No Rash/ulcers: No Neurological: Headaches: YES Sensitivity or pain of hands and/or feet: No Psychiatry: Anxiety: YES Depression: YES Poor sleep: YES mainly due to knee pain. H/o loss: No H/o thrombosis: No Increased susceptibility to infection: No No past medical history on file. PAST SURGICAL HISTORY Procedure Laterality Date EXTRACTION ERUPTED TOOTH/EXR [place] TONSILLECTOMY & ADENOIDECTOMY <AGE 11 History Review: I have reviewed and modified as needed, the following during this visit: Allergies, Past Medical History, Past Surgical History, Past Family History, Past Social History. BP 142/82 Pulse 97 Temp 36.8 C (98.3 F) (Temporal) Resp 14 Ht 162.6 cm (5' 4 ) Wt (!) 158.8 kg (350 lb) LMP (Approximate) BMI 60.08 kg/m Physical Exam GENERAL: Well appearing, alert, comfortable, in no acute distress, well-hydrated, well nourished. HEENT: Negative for external ears normal. Canals are clear. Both TMs visualized and are normal. Eye Exam normal. External nose normal, no nasal ulcer or throat ulcer. NECK: NECK Supple, no adenopathy; thyroid symmetric, normal size, no bruits CARDIAC: regular rate and rhythm, No murmur asculated., and Equal peripheral pulses RESPIRATORY: Lungs clear to auscultation. No wheezing, rhonchi, rales VASCULAR: RRR without murmur, gallop, or rubs. No ectopy. NEURO: Motor and sensory exam normal MOTOR: Normal; including tone, gait, stressed gait, power and coordination. SKIN: Negative for alopecia, skin rash, malar rash, skin lesion, skin ulcer, pits, thickening, color changes, telangiectasias, nail changes, nail ridging, nail pitting, onycholysis MUSCULOSKELETAL: DIPS: Normal PIPS: Normal MCPs: Normal Wrists: Normal Elbows: Normal Shoulders: Normal C-Spine: Normal Hips: Normal Knees: Normal Ankles: Normal MTPs / Toes: Normal Arches: Normal Lab Results: No results found for this basename: gluc, K, NA, CHLOR, CO2, CREAT, BUN, ANION, CA, TPROT, ALB, TBILI, ALKPHOS, AST,ALT,WBC,HB,PLT,wsr,crp Serology: ANTWON, RF neg Radiology: Assessment and Plan (M54.50) Low back pain, unspecified back pain laterality, unspecified chronicity, unspecified whether sciatica present (primary encounter diagnosis) (M25.50) Pain in joint, multiple sites (E55.9) Vitamin D deficiency (L40.9) Psoriasis (L40.59) Polyarticular psoriatic arthritis (HCC) 33-year-old female is here for chronic pain. She has personal history of psoriasis which is well controlled. Denies joint swelling, uveitis, colitis or strong family history of autoimmune diseases. Likelihood of psoriatic arthritis cannot be ruled out however we will evaluate with below labs and x-rays. ANTWON and rheumatoid factor have been negative. We also discussed about proper sleep, good mood, regular exercise and healthy diet. PT and pain management referral for low back pain Cannot rule of PsA. Starting MTX. Risks and benefits explained. Office Visit on 09/05/23 BLOOD TB SCREEN, INCUBATED HEP B SURF AG SCRN HEP B SURF AB HEPATITIS C ANTIBODY IA WITH CONFIRMATION HEP B CORE AB TOTAL CBC + DIFF COMP METABOLIC PANEL C-REACTIVE PROTEIN (CRP) SED RATE WESTERGREN VITAMIN D 25 HYDROXY CONSULT TO PHYSICAL THERAPY CONSULT TO PAIN MGT Medication orders placed this encounter folic acid 1 mg tablet Sig: Take 1 tablet by mouth once daily. Dispense: 30 tablet Refill: 1 methotrexate 2.5 mg tablet Sig: Take 6 tablets by mouth one time a week. as directed. Dispense: 24 tablet Refill: 1 No follow-ups on file. Shara Grayson MD documented in this encounter [facility] 08-29-2023 Miscellaneous Notes Next appt in office on Friday, see below. 09/05/2023 10:00 AM Shara Grayson MD [facility] [place] Farooq LPN documented in this encounter [facility] 07-08-2023 Miscellaneous Notes Pharmacy faxed requesting the following refill. Requested Prescriptions Pending Prescriptions Disp Refills cholecalciferol, Vitamin D3, (VITAMIN D3) 1,250 mcg (50,000 unit) cap capsule [Pharmacy Med Name: VITAMIN D3 50,000 UNIT CAPSULE] 12 capsule 0 Sig: TAKE VITAMIN D 50,000 UNITS ONCE EVERY WEEK X 12 WEEKS THEN 2000 UNITS DAILY OVER THE COUNTER AFTER Patient last appointment: 04/02/2023 Next Appointment: 09/05/2023 Patient Phone numbers: [phone] (home) Request is for script(s) to be escript to pharmacy. Tressa Hernadez MA documented in this encounter [facility] 04-11-2023 Note HNO ID: [id number] Author: Aria Cee RT(R) Service: ? Author Type: Deck Specialist Type: Progress Notes Filed: 04/11/2023 11:24 AM Note Text: Radiology Service Progress Note PATIENT NAME: Sandra Carvajal DATE OF SERVICE: April 11, 2023 TIME: 11:23 AM PATIENT IDENTITY VERIFICATION COMPLETED USING TWO (2) IDENTIFIERS: Name and Date of confirmed by patient verbally. FALL SCREENING: Has the patient had 2 falls in the last year or 1 fall with injury or currently using an Ambulatory Assistive Device (Walker, Cane, Wheelchair, Crutches, etc.)? No PATIENT GENDER DATA: Female. status: : No status: NO. PATIENT RELEVANT IMPLANT DATA REVIEWED: Yes RADIOLOGY DEPARTMENT: General X-ray: Exam(s) Completed: Spine X-Ray(s): Lumbar AP / LAT / L5-S1 Pelvis X-Ray: sacroiliac joints Lower Extremity X-Ray(s): Knee, AP Only Bilateral Upper Extremity X-Ray(s): Hand, bilateral PERIPHERAL IV DATA: Not applicable SIGNED BY: RT Nishi(R) April 11, 2023 11:23 AM [facility] 04-02-2023 Note HNO ID: [id number] Author: Shara Grayson MD Service: ? Author Type: Physician Type: Progress Notes Filed: 04/02/2023 12:18 PM Note Text: VIRTUAL VISIT PROGRESS NOTE This is a virtual visit using Tile video visit. It required patient-provider interaction for the medical decision making as documented below. I have communicated my name and active licensure. The patient's identity and physical location were verified at the time of this visit. Either the patient or their legal sales representative electric service has been informed of the risks and benefits of -- and alternatives to -- treatment through a remote evaluation and consents to proceed with the evaluation remotely. Sandra Carvajal is a 32 year old female seen for joint pain. Joint pain, several years. No preceding trauma, health issues. Pain over knees, elbows, knuckles. H/o carpal tunnel? No swelling. Pain is worse towards the end of the day. She has tried OTC ibuprofen, heat pad. Chronic back pain. Radiating. Psoriasis, uses creams. Saw derm. Family h/o autoimmune disease - none Smoking - never Rheumatology REVIEW OF SYSTEMS: Constitutional: Recent Weight Change: No Fatigue: YES Fever: No Night sweats: No Heent: Alopecia: No H/o Inflammatory eye disease (iritis/scleritis): No Hearing loss: No Frequent sinusitis: No Oral ulcers: No Sicca: YES dry eyes Parotid swelling: No Hoarseness: No Dysphagia: No Heme/lymph: Lymphadenopathy: No Hematological abnormalities (anemia, thrombocytopenia, leukopenia): No Abnormal bleeding: No Skin: Malar or discoid lesions: No Photosensitivity: No Other rashes: No Raynaud's phenomenon: No Hives: No Tightness: No Nodules/bumps: No Easy Bruising: No Nail changes: No H/o psoriasis: No Gastroenterology: Nausea: No Vomiting: No Change in bowel movements: YES diarrhea. Heartburn: No Respiratory: Dry cough/SOB: No Cardiovascular: Pain in chest: No Musculoskeletal: Per HPI Genitourinary: Vaginal dryness: No Rash/ulcers: No Neurological: Headaches: YES Sensitivity or pain of hands and/or feet: No Psychiatry: Anxiety: YES Depression: YES Poor sleep: YES mainly due to knee pain. H/o loss: No H/o thrombosis: No Increased susceptibility to infection: No HISTORY REVIEWED (electronic chart updated): No past medical history on file. No past surgical history on file. No family history on file. No current outpatient medications on file. No current facility-administered medications for this visit. ALLERGIES Not on File REVIEW OF SYSTEMS: All other ROS: negative As noted in HPI PHYSICAL EXAMINATION: VIDEO EXAM: (if completed, performed via video enabled technology) GENERAL: alert and appropriate, in no distress, well-hydrated, well nourished, and happy, smiling, interactive ANTWON, RF neg ASSESSMENT: (M25.50) Pain in joint, multiple sites (primary encounter diagnosis) (E55.9) Vitamin D deficiency PLAN: 32-year-old female is here for evaluation management recommendation for chronic pain. She has personal history of psoriasis which is well controlled. Denies joint swelling, uveitis, colitis or strong family history of autoimmune diseases. Likelihood of psoriatic arthritis cannot be ruled out however we will evaluate with below labs and x-rays. ANTWON and rheumatoid factor have been negative. We also discussed about proper sleep, good mood, regular exercise and healthy diet. There are no Patient Instructions on file for this visit. I spent a total of 30 minutes on the date of the service which included preparing to see the patient, [id number] patient care, completing clinical documentation, obtaining and/or reviewing separately obtained history, performing a medically appropriate examination, ordering medications, tests, or procedures, and communicating results to the patient/family/caregiver Shara Grayson MD [facility] on 04/02/23 XR HAND GENERAL 3V PA/LAT/OBL LEFT XR HAND GENERAL 3V PA/LAT/OBL RIGHT XR KNEE SURVEY ARTHRITIS 1V AP BILATERAL XR LUMBAR GENERAL 3V AP/LAT/L5-S1 XR SACROILIAC JOINTS 2V AP PELVIS/FERGUESON CCP ANTIBODY IGG SJOGREN ABS SSA/SSB VITAMIN D 25 HYDROXY URINALYSIS WITH MICROSCOPIC, REFLEX CULTURE No orders of the defined types were placed in this encounter. Platform used - my chart [facility] 04-02-2023 History of Presen t illness Narrative VIRTUAL VISIT PROGRESS NOTE This is a virtual visit using Tile video visit. It required patient-provider interaction for the medical decision making as documented below. I have communicated my name and active licensure. The patient's identity and physical location were verified at the time of this visit. Either the patient or their legal sales representative electric service has been informed of the risks and benefits of -- and alternatives to -- treatment through a remote evaluation and consents to proceed with the evaluation remotely. Sandra aCrvajal is a 32 year old female seen for joint pain. Joint pain, several years. No preceding trauma, health issues. Pain over knees, elbows, knuckles. H/o carpal tunnel? No swelling. Pain is worse towards the end of the day. She has tried OTC ibuprofen, heat pad. Chronic back pain. Radiating. Psoriasis, uses creams. Saw derm. Family h/o autoimmune disease - none Smoking - never Rheumatology REVIEW OF SYSTEMS: Constitutional: Recent Weight Change: No Fatigue: YES Fever: No Night sweats: No Heent: Alopecia: No H/o Inflammatory eye disease (iritis/scleritis): No Hearing loss: No Frequent sinusitis: No Oral ulcers: No Sicca: YES dry eyes Parotid swelling: No Hoarseness: No Dysphagia: No Heme/lymph: Lymphadenopathy: No Hematological abnormalities (anemia, thrombocytopenia, leukopenia): No Abnormal bleeding: No Skin: Malar or discoid lesions: No Photosensitivity: No Other rashes: No Raynaud's phenomenon: No Hives: No Tightness: No Nodules/bumps: No Easy Bruising: No Nail changes: No H/o psoriasis: No Gastroenterology: Nausea: No Vomiting: No Change in bowel movements: YES diarrhea. Heartburn: No Respiratory: Dry cough/SOB: No Cardiovascular: Pain in chest: No Musculoskeletal: Per HPI Genitourinary: Vaginal dryness: No Rash/ulcers: No Neurological: Headaches: YES Sensitivity or pain of hands and/or feet: No Psychiatry: Anxiety: YES Depression: YES Poor sleep: YES mainly due to knee pain. H/o loss: No H/o thrombosis: No Increased susceptibility to infection: No HISTORY REVIEWED (electronic chart updated): No past medical history on file. No past surgical history on file. No family history on file. No current outpatient medications on file. No current facility-administered medications for this visit. ALLERGIES Not on File REVIEW OF SYSTEMS: All other ROS: negative As noted in HPI PHYSICAL EXAMINATION: VIDEO EXAM: (if completed, performed via video enabled technology) GENERAL: alert and appropriate, in no distress, well-hydrated, well nourished, and happy, smiling, interactive ANTWON, RF neg ASSESSMENT: (M25.50) Pain in joint, multiple sites (primary encounter diagnosis) (E55.9) Vitamin D deficiency PLAN: 32-year-old female is here for evaluation management recommendation for chronic pain. She has personal history of psoriasis which is well controlled. Denies joint swelling, uveitis, colitis or strong family history of autoimmune diseases. Likelihood of psoriatic arthritis cannot be ruled out however we will evaluate with below labs and x-rays. ANTWON and rheumatoid factor have been negative. We also discussed about proper sleep, good mood, regular exercise and healthy diet. There are no Patient Instructions on file for this visit. I spent a total of 30 minutes on the date of the service which included preparing to see the patient, [id number] patient care, completing clinical documentation, obtaining and/or reviewing separately obtained history, performing a medically appropriate examination, ordering medications, tests, or procedures, and communicating results to the patient/family/caregiver Shara Grayson MD [facility] on 04/02/23 XR HAND GENERAL 3V PA/LAT/OBL LEFT XR HAND GENERAL 3V PA/LAT/OBL RIGHT XR KNEE SURVEY ARTHRITIS 1V AP BILATERAL XR LUMBAR GENERAL 3V AP/LAT/L5-S1 XR SACROILIAC JOINTS 2V AP PELVIS/FERGUESON CCP ANTIBODY IGG SJOGREN ABS SSA/SSB VITAMIN D 25 HYDROXY URINALYSIS WITH MICROSCOPIC, REFLEX CULTURE No orders of the defined types were placed in this encounter. Platform used - my chart documented in this encounter [facility] Evaluation + Plan note Future Appointments Appointment Date:07/18/2023 09:00:00 AM Scheduled Provider: Location:[facility] Appointment Type:DB Diabetic Individual Visit (AOH) Appointment Date:07/23/2023 10:00:00 AM Scheduled Provider:MARIBELL MAHER DO Location:[facility] Appointment Type:[facility] Annual Appointment Date:08/01/2023 11:00:00 AM Scheduled Provider:MARIBELL MAHER DO Location:[facility] Appointment Type:PC OV Appointment Date:09/19/2023 10:30:00 AM Scheduled Provider:ALEXEY KNOWLES MD Location: [facility] Appointment Type: OV DEPO/LUPRON Future Scheduled TestsComplete Blood Count 06/11/23Lipid Profile 06/11/23Complete Metabolic Panel 06/11/23 [facility] Evaluation + Plan note Future Appointments Appointment Date:08/28/2023 11:30:00 AM Scheduled Provider:MARIBELL MAHER DO Location:[facility] Appointment Type:PC Wellness Annual Appointment Date:09/04/2023 11:30:00 AM Scheduled Provider:MARIBELL MAHER DO Location:[facility] Appointment Type:PC OV Appointment Date:09/19/2023 10:30:00 AM Scheduled Provider:ALEXEY KNOWLES MD Location: [facility] Appointment Type: OV DEPO/LUPRON Appointment Date:09/23/2023 11:00:00 AM Scheduled Provider: Location:[facility] Appointment Type:NUT Diet Visit Individual Future Scheduled TestsComplete Blood Count 06/11/23Lipid Profile 06/11/23Complete Metabolic Panel 06/11/23 [facility] Evaluation + Plan note Future Appointments Appointment Date:09/19/2023 10:30:00 AM Scheduled Provider:ALEXEY KNOWLES MD Location: [facility] Appointment Type: OV DEPO/LUPRON Appointment Date:09/23/2023 11:00:00 AM Scheduled Provider: Location:[facility] Appointment Type:NUT Diet Visit Individual Appointment Date:11/06/2023 11:00:00 AM Scheduled Provider:MARIBELL MAHER DO Location:[facility] Appointment Type:PC OV Future Scheduled TestsHepatic Function Panel 10/13/23 [facility] Evaluation + Plan note Future Appointments Appointment Date:09/25/2023 08:30:00 AM Scheduled Provider:MARIBELL MAHER DO Location:[facility] Appointment Type:PC OV Appointment Date:12/08/2023 11:00:00 AM Scheduled Provider:JORGE GLASS Location: [facility] Appointment Type: OV DEPO/LUPRON Future Scheduled TestsHepatic Function Panel 10/13/23 [facility]* Diagnosis Low back pain, unspecified back pain laterality, unspecified chronicity, unspecified whether sciatica present- Primary Pain in joint, multiple sites Vitamin D deficiency Unspecified vitamin D deficiency Psoriasis Other psoriasis Polyarticular psoriatic arthritis (HCC) Psoriatic arthropathy documented [facility] this encounter [facility]* Diagnosis Pain in joint, multiple sites- Primary documented in this encounter [facility] note* Diagnosis Psoriasis Other psoriasis Polyarticular psoriatic arthritis (HCC) Psoriatic arthropathy documented in this encounter [facility] course Narrative No data available for this section [facility] Hospital Discharge instructions No data available for this section [facility] Progress note No data available for this section [facility] Reason for referral (narrative)* Diagnostic Procedure Only (Routine) - Pending Review Specialty Diagnoses / Procedures Referred By Contac t Referred To Contact XR IMAGING Diagnoses Pain in joint, multiple sites Procedures XR SACROILIAC JOINTS 2V AP PELVIS/FERGUESON RADIOLOGIC EXAMINATION SACROILIAC JNTS <3 VIEWS Shara Grayson MD [address] [place] [address] [place] [address] Referral ID Status Reason Start Date Expiration Date Visits Requested Visits Authorized [id number] Pending Review Auto-Generat ed Referral 04/02/2023 05/01/2024 1 1 * Diagnostic Procedure Only (Routine) - Pending Review Specialty Diagnoses / Procedures Referred By Contac t Referred To Contact XR IMAGING Diagnoses Pain in joint, multiple sites Procedures XR LUMBAR GENERAL 3V AP/LAT/L5-S1 RADEX SPINE LUMBOSACRAL 2/3 VIEWS Shara Grayson MD [address] [place] [address] [place] [address] Referral ID Status Reason Start Date Expiration Date Visits Requested Visits Authorized [id number] Pending Review Auto-Generat ed Referral 04/02/2023 05/01/2024 1 1 * Diagnostic Procedure Only (Routine) - Pending Review Specialty Diagnoses / Procedures Referred By Contac t Referred To Contact XR IMAGING Diagnoses Pain in joint, multiple sites Procedures XR KNEE SURVEY ARTHRITIS 1V AP BILATERAL RADIOLOGIC EXAM BOTH KNEES STANDING ANTEROPOST Shara Grayson MD [address] [place] [address] [place] [address] Referral ID Status Reason Start Date Expiration Date Visits Requested Visits Authorized [id number] Pending Review Auto-Generat ed Referral 04/02/2023 05/01/2024 1 1 * Diagnostic Procedure Only (Routine) - Pending Review Specialty Diagnoses / Procedures Referred By Contac t Referred To Contact XR IMAGING Diagnoses Pain in joint, multiple sites Procedures XR HAND GENERAL 3V PA/LAT/OBL RIGHT RADEX HAND MINIMUM 3 VIEWS Shara Grayson MD [address] [place] [address] [place] [address] Referral ID Status Reason Start Date Expiration Date Visits Requested Visits Authorized [id number] Pending Review Auto-Generat ed Referral 04/02/2023 05/01/2024 1 1 * Diagnostic Procedure Only (Routine) - Pending Review Specialty Diagnoses / Procedures Referred By Contac t Referred To Contact XR IMAGING Diagnoses Pain in joint, multiple sites Procedures XR HAND GENERAL 3V PA/LAT/OBL LEFT RADEX HAND MINIMUM 3 VIEWS Shara Grayson MD [address] [place] [address] [place] [address] Referral ID Status Reason Start Date Expiration Date Visits Requested Visits Authorized [id number] Pending Review Auto-Generat ed Referral 04/02/2023 05/01/2024 1 1 [facility] Summary Purpose Family History No Family History Records Found No data available for this section No data available for this section No data available for this section No data available for this section No Family History Records FoundNo Family History Records Found No data available for this section Advance Directives No Advanced Directives Records FoundNo Advanced Directives Records FoundNo Advanced Directives Records Found Reason for Referral Specialty Diagnoses / Procedures Referred By Contac t Referred To Contact Pain Management Diagnoses Low back pain, unspecified back pain laterality, unspecified chronicity, unspecified whether sciatica present Procedures CONSULT TO PAIN MGT Shara Grayson MD [address] [facility] [address] [place] [address] Referral ID Status Reason Start Date Expiration Date Visits Requested Visits Authorized [id number] Ref Not Required PCP Requested Referral 09/05/2023 12/04/2023 3 3 Specialty Diagnoses / Procedures Referred By Contac t Referred To Contact [facility] Diagnoses Low back pain, unspecified back pain laterality, unspecified chronicity, unspecified whether sciatica present Procedures CONSULT TO PHYSICAL THERAPY PHYSICAL THERAPY EVALUATION HIGH COMPLEX 45 MINS Shara Grayson MD [address] [place] [address] [facility] [address] [place] [address] Referral ID Status Reason Start Date Expiration Date Visits Requested Visits Authorized [id number] Pending Review Auto-Generat ed Referral 09/05/2023 09/04/2024 1 1 Additional Source Comments Source Comments (unrecognize d section and content) In the event this informatio n is protected by the Federal Confidentiality of Alcohol and Drug Abuse Patient Records regulations: The Federal rules restrict any use of the information to criminally investigate or prosecute any alcohol or drug abuse patient.[facility] the event this information is protected by the Federal Confidentiality of Alcohol and Drug Abuse Patient Records regulations: The Federal rules restrict any use of the information to criminally investigate or prosecute any alcohol or drug abuse patient.[facility] the event this information is protected by the Federal Confidentiality of Alcohol and Drug Abuse Patient Records regulations: The Federal rules restrict any use of the information to criminally investigate or prosecute any alcohol or drug abuse patient.[facility] the event this information is protected by the Federal Confidentiality of Alcohol and Drug Abuse Patient Records regulations: The Federal rules restrict any use of the information to criminally investigate or prosecute any alcohol or drug abuse patient.[facility] the event this information is protected by the Federal Confidentiality of Alcohol and Drug Abuse Patient Records regulations: The Federal rules restrict any use of the information to criminally investigate or prosecute any alcohol or drug abuse patient.[facility] the event this information is protected by the Federal Confidentiality of Alcohol and Drug Abuse Patient Records regulations: The Federal rules restrict any use of the information to criminally investigate or prosecute any alcohol or drug abuse patient.[facility] the event this information is protected by the Federal Confidentiality of Alcohol and Drug Abuse Patient Records regulations: The Federal rules restrict any use of the information to criminally investigate or prosecute any alcohol or drug abuse patient.[facility] the event this information is protected by the Federal Confidentiality of Alcohol and Drug Abuse Patient Records regulations: The Federal rules restrict any use of the information to criminally investigate or prosecute any alcohol or drug abuse patient.[facility] the event this information is protected by the Federal Confidentiality of Alcohol and Drug Abuse Patient Records regulations: The Federal rules restrict any use of the information to criminally investigate or prosecute any alcohol or drug abuse patient.[facility] the event this information is protected by the Federal Confidentiality of Alcohol and Drug Abuse Patient Records regulations: The Federal rules restrict any use of the information to criminally investigate or prosecute any alcohol or drug abuse patient.[facility] the event this information is protected by the Federal Confidentiality of Alcohol and Drug Abuse Patient Records regulations: The Federal rules restrict any use of the information to criminally investigate or prosecute any alcohol or drug abuse patient.[facility] Reason for Visit (unrecogniz ed section and content) Reason Comments Refill Request Reason Comments Joint Pain Reason Comments Initial Consult Reason Comments Joint Pain Reason Comments Med Change Request Care Teams (unrecognized sec tion and content) Diet Kitchen Cook Relationship Specialty Start Date End Date Maribell Maher DO [address] [place] [id number] PCP - General Family Medicine 03/19/23 Diet Kitchen Cook Relationship Specialty Start Date End Date Maribell Maher DO [address] [place] [id number] PCP - General Family Medicine 03/19/23 Diet Kitchen Cook Relationship Specialty Start Date End Date Maribell Maher DO [address] [place] [address] PCP - General Family Medicine 03/19/23 Diet Kitchen Cook Relationship Specialty Start Date End Date Maribell Maher DO [address] [place] [address] PCP - General Family Medicine 03/19/23 Diet Kitchen Cook Relationship Specialty Start Date End Date Maribell Maher DO [address] [place] [address] PCP - General Family Medicine 03/19/23 Diet Kitchen Cook Relationship Specialty Start Date End Date Maribell Maher DO [address] [place] [address] PCP - General Family Medicine 03/19/23 Diet Kitchen Cook Relationship Specialty Start Date End Date Maribell Maher DO [address] [place] [address] PCP - General Family Medicine 03/19/23 Diet Kitchen Cook Relationship Specialty Start Date End Date Maribell Maher DO [address] [place] [address] PCP - General Family Medicine 03/19/23 Diet Kitchen Cook Relationship Specialty Start Date End Date Maribell Maher DO [address] [place] [address] PCP - General Family Medicine 03/19/23 INFORMATION SOURCE (unrecogn ized section and content) DATE CREATED AUTHOR AUTHOR'S ORGANIZ ATION 09/09/2023 [facility], [facility] ([place]) DATE CREATED AUTHOR AUTHOR'S ORGANIZ ATION 09/11/2023 [facility] FOR RECORDS PERTAINING TO PATIENTS WHO ARE OR HAVE BEEN ENROLLED IN A CHEMICAL DEPENDENCY/SUBSTANCEABUSE PROGRAM, SOME INFORMATION MAY BE OMITTED. This clinical summary was aggregated from multiple sources. Caution should be exercised in using it in the provision of clinical care. This summary normalizes information from multiple sources, and as a consequence, information in this document may materially change the coding, format and clinical context of patient data. In addition, data may be omitted in some cases. CLINICAL DECISIONS SHOULD BE BASED ON THE PRIMARY CLINICAL RECORDS. [facility]. provides no warranty or guarantee of the accuracy or completeness of information in this document.
[2023-10-03 12:11] LABS: Absolute Lymphocyte Count 2.27 X10^3/uL (0.83-4.51); Absolute Neutrophil Count 3.8 X10^3/uL (2.0-7.7); Basophil# 0.03 X10^3/uL; Basophil% 0.5 % (0-1); Eosinophils% 1.5 % (0-5); Hematocrit 46.2 % (37-47); Hemoglobin 14.5 g/dL (12.0-15.0); Lymphocyte # 2.27 X10^3/ul (0.83-4.51); Lymphocyte % 34.6 % (19-41); Mean Corp Hgb Conc 31.4 g/dL (32-36); Mean Corpuscular Hgb 25.3 pg (27.0-32.0); Mean Corpuscular Volume 80.5 fL (81-99); Mean Platelet Vol. 11.4 fl (6.2-12.0); Monocyte% 4.6 % (0-10); NRBC Flagged by Analyzer 0 % (0-5); Neutrophil # 3.84 X10^3/uL (2.7-7.7); Neutrophil % 58.3 % (47-70); Platelet Count 262 K/mm3 (150-450); RBC Distribution Width CV 14.8 % (11.6-14.6); Red Blood Count 5.74 M/mm3 (4.2-5.4); White Blood Count 6.6 K/mm3 (4.4-11.0)
[2023-10-03 12:40] LABS: ALB/GLOB Ratio 0.8 RATIO (0.9-2.4); AST(SGOT) 15 U/L (15-37); Alanine Aminotransfer ALT/SGPT 27 U/L (13-56); Albumin, Serum 3.5 g/dL (3.2-5.0); Alkaline Phosphatase 83 U/L (45-117); Anion Gap 7 (5-15); BUN 7 mg/dL (7-18); BUN/Creat Ratio 10.6 RATIO (10-20); Chloride 109 mmol/L (98-107); Creatinine, Serum 0.66 mg/dL (0.55-1.02); EST Glomerular Filtration Rate 109 mL/min (>60); Est Glom Filt Rate - Afr Amer 132 mL/min (>60); Globulin 4.5 g/dL (2.2-4.2); Glucose 112 mg/dL (74-106); Potassium 3.9 mmol/L (3.5-5.1); Sodium Level 140 mmol/L (136-145)
== END | disposition home or self-care (01) ==
LOC: LAB 11:18
PROVIDERS: PCP Student in an Organized Health Care Education/Training Program; Referring Provider Internal Medicine Infectious Disease; Visit Provider Internal Medicine Infectious Disease
DX: R50.9 Fever, unspecified (principal)
CPT/HCPCS: 36415; 80053; 85025; 87040

== ENCOUNTER 2023-11-21 10:30 | Outpatient (RCR) | payer MEDICAID, SELFPAY ==
--- NOTE | 2023-10-17 10:03 | HP.PTEVAL ---
Patient's Visit Information Visit Information Visit Information: WEN PARKS is a 33 year old F referred to Physical Therapy by Dr. Shara Grayson MD with a diagnosis of LOW BACK PAIN. Date of Evaluation: 10/17/23 Physical Therapist: Zhanna Rashid PT, Cert MDT Visit Plan Frequency: 2-3x /Week Duration: 4-6 Weeks Plan: AQUATIC THERAPY FOR PAIN RELEIF, POSTURE CORRECTION/STRENGTHENING, INSTRUCTION IN APPROPRIATE BODY MECHANICS AND ACTIVITY MODIFICATIONS. DLS STARTING WITH A NEUTRAL SPINE PROGRESSING ROM TOLERATED. ULISES LE ROM, STRETCHING AND STRENGTHENING. HEP INSTRUCTION. Subjective Subjective: Work/Leisure: UNEMPLOYEED. 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 SHE REPORTS NOT WORKING IS NOT RELATED TO HER BACK PROBLEM. Disability: NO Present symptoms: INTERMITTENT ULISES LOW BACK PAIN L>R. INTERMITTENT L POSTERIOR THIGH PAIN. DENIES ULISES LE NUMBNESS AND TINGLING. Present since: A FEW YEARS. Pain Scale: WORST 9/10, LEAST 2/10 Currently: 4/10 Is it getting better, worse or staying the same: GETTING WORSE Commenced as a result of: NO APPARENT REASON Symptoms at onset: LOW BACK PAIN Worse: BENDING OVER, WALKING, PROLONGED STANDING, WALKING ON TREADMILL (15-30 MIN 5 DAYS A WEEK- PAIN LIMITED) HOUSE CLEANING, SHOPPING, STEPS (LIVING IN SPLIT LEVEL HOME) Better: LEANING AGAINST GROCERY CART. LYING DOWN. SITTING. APPLYING HEAT. CANNABIS EDIBLES AT NIGHT. Disturbed sleep: YES Previous history/Previous treatment: RA SPECIALIST. NO BACK SURGERY, INJECTIONS OR PRESCRIPTION PAIN MEDICATION. Treatment this episode: [facility] PAIN MGMT CONSULT ORDERED IN ADDITION TO THIS PT CONSULT. HAS HAD ONE VISIT WITH PAIN MGMT AND GOING TO SEE HOW PT GOES FIRST. NO SPINE SURGERY RECOMMENDED AT THIS TIME. Coughing/sneezing/straining: NEGATIVE Gait: PROLONGED WALKING CAUSES SHARP PAIN TO GO DOWN INTO L THIGH LIMITING STANDING AND WALKING. LEANING AGAINST SOME ALLEVIATES IT THEN CAN GO AGAIN. Bowel or Bladder Dysfunction: NO Accidents: NO Unexplained weight loss: NO Imaging: RECENT LUMBAR X-RAYS LANDIN [facility] - EARLY ONSET OA PER PATIENT REPORT. PMH/Recent major surgery: HTN, PRE-DIABETIC, SLEEP APNEA, PSORIATIC ARTHRITIS KNEES AND ELBOWS, DEPRESSION, ANXIETY AND ADHD. SOCIAL: SPLIT LEVEL HOME - LIVES WITH HOME. Objective Objective: Sitting/Standing Posture: POOR. FH. RSH'S. NORMAL LORDOSIS. NO RELEVANT LATERAL SHIFT. Active Correction of posture: WORSE. ONLY ABLE TO PARTIALLY CORRECT. DOES NOT MAINTAIN. Other Observations: INDEP GAIT AND TRANSFERS WITHOUT UE ASSIST. Sensory deficit: ULISES LE LIGHT TOUCH SENSATION IS GROSSLY INTACT AND SYMMETRICAL ROM deficit: ULISES LE TIGHTNESS ALL PLANES WITH L CALF > RIGHT. FULL ULISES KNEE EXT WITH FLEX TO 111 DEG ON THE R AND 101 DEG ON THE L. Motor deficit: MMT R HIP 4/5, KNEE 5/5, ANKLE 5/5. L HIP 4-/5, KNEE 5/5, ANKLE 5/5. Reflexes: UNABLE TO ELICIT ULISES LE DTR'S. Dural Signs: POSITIVE LLE Lumbar mvmt loss: flex - MOD ext - TATIANA R SG - MIN L SG - MOD PATIENT C/O INCREASED L LBP WITH LUMBAR ROM TESTING ALL PLANES AND REMAINS WORSE A RESULT BUT DOES NOT PERIPHERIZE INTO L THIGH. Core strength: POOR Palpation: TENDERNESS WITH LIGHT PALPATION OF THE L345 REGION AND L LUMBAR PARASPINALS. Balance/Special Test Scores Oswestry Low Back Score: 16 Goals Goal 1:: DECREASE C/O BACK AND LLE SX'S BY AT LEAST 25% TO EASE ADL'S. Goal Time Frame: 4-6 Weeks Goal 2:: PATIENT WILL HAVE INCREASED PAINFREE LUMBAR ROM ALL PLANES TO EASE ADL'S Goal Time Frame: 4-6 Weeks Goal 3:: PATIENT WILL HAVE INCREASED STRENGTH OF ALL INVOLVED MUSCULATURE BY AT LEAST 1/2 MUSCLE GRADE. Goal Time Frame: 4-6 Weeks Goal 4:: PATIENT WILL SCORE AT LEAST 5 POINTS BETTER ON BACK OSWESTRY QUESTIONNAIRE. Goal Time Frame: 4-6 Weeks Goal 5:: PATIENT WILL BE INDEP WITH LAND AND/OR WATER EX PROGRAMS FOR CONTINUED IMPROVEMENT ONCE FORMAL PHYSICAL THERPAY CONCLUDES. Goal Time Frame: 4-6 Weeks Rehabilitation Potential Physical Therapy Diagnosis: THIS PATIENT PRESENTS TO PT WITH C/O INT ULISES LOW BACK PAIN L>R AND L THIGH PAIN. SHE HAS LOW BACK TENDERNESS, CORE WEAKNESS AND STIFFNESS IN HER TRUNK AND ULISES LE'S. Rehabilitation Potential: Good Anticipated Interventions Patient/Client Instruction: Educate patient on: Condition, Plan of Care and Risk Factors For the Purpose of:: To improve self management Therapeutic Exercise to Include: Strength training, Body mechanics, Postural training, Flexibilty training, Neuromotor development, In an aquatic setting and Dynamic Lumbar Stabilization For the Purpose of:: To decrease pain, To increase ROM, To improve muscle performance and motor function, To increase tolerance to activity/condition/position, To improve ability of physical actions for home/community/work/leisure, To improve gait and locomotor functions and To increase flexibility/ROM Text: Thank you for the opportunity to evaluate your patient. For Medicare and Medicare HMO plans, please review the plan of care and approve it. It will need to be FAXED BACK to us at [phone] for Medicare purposes. For Medicare only, by signing this I certify the plan of care. Please let me know if there are questions or concerns regarding this plan of care. Physician Signature: Date:
--- NOTE | 2023-11-21 12:51 | HP.PTREVAL ---
Re-Evaluation Intro: Dr. Shara Grayson MD, It has been my pleasure to treat WEN PARKS over the last 8 visits for LOW BACK PAIN. Please see the progress note below for an update on the physical therapy plan of care! Subjective Subjective: PATIENT STATES I CAN WALK FOR LONGER PERIODS OF TIME AND I CAN LIFT BETTER WITHOUT IT CAUSING ME PAIN. SINCE STARTING PHYSICAL THERAPY. PATIENT REPORTS COMPLIANCE WITH HEP. SHE REPORTS SHE WOULD LIKE TO DECREASE TO ONCE A WEEK IN THE POOL SHE CONTINUES TO TRY TO PROGRESS HER STRENGTHENING AT HOME. PATIENT REPORTS SHE HAS NOT BEEN GETTING L THIGH PAIN AND LBP RANGES 0-6/10. PATIENT REPORTS NOTICING IMPROVEMENT GOING UP AND DOWN STEPS TOO SINCE STARTING PT. STATES SHE WOULD LIKE TO TRY TO FIGURE OUT IF SHE CAN GET A POOL MEMBERSHIP TO CONTINUE WATER EX ONCE SHE IS DONE WITH PT AND SHE IS GOING TO TALK TO HER MOM SINCE SHE BRINGS HER (PATIENT DOES NOT DRIVE). Objective Objective/Function: PATIENT WAS SEEN TODAY FOR RE-ASSESSMENT OF PROGRESS TOWARD THE SET PT GOALS AND THE NEED FOR FURTHER PHYSICAL THERAPY VS READINESS FOR DISCHARGE. THIS PATIENT IS MAKING GOOD PROGRESS WITH PT. SHE IS GETTING STRONGER, ULISES FUNCTIONAL KNEE FLEXION ROM HAS IMPROVED, SHE IS REPORTING LESS PAIN AND SHE IS BECOMING INDEP IN BOTH LAND AND WATER EXERCISE PROGRAMS. SHE IS A GOOD CANDIDATE TO CONTINUE PT BASED ON PROGRESS MADE AND ROOM FOR FURTHER IMPROVEMENT. UPON EXAM TODAY: ROM deficit: ULISES LE TIGHTNESS ALL PLANES WITH L CALF > RIGHT. FULL ULISES KNEE EXT WITH IMPROVED FLEX TO 118 DEG ON THE R AND 110 DEG ON THE L. Motor deficit: MMT R HIP 4/5, KNEE 5/5, ANKLE 5/5. L HIP 4/5, KNEE 5/5, ANKLE 5/5. Lumbar mvmt loss: flex - MOD ext - TATIANA R SG - MIN L SG - MIN PATIENT DENIES LOW BACK PAIN WITH LUMBAR ROM TESTING ALL PLANES TODAY. Core strength: FAIR Plan Plan Plan: CONTINUE AQUATIC THERAPY DECREASING TO 1X A WK. *PROGRESS HEP* AQUATIC THERAPY FOR PAIN RELEIF, POSTURE CORRECTION/STRENGTHENING, INSTRUCTION IN APPROPRIATE BODY MECHANICS AND ACTIVITY MODIFICATIONS. DLS STARTING WITH A NEUTRAL SPINE PROGRESSING ROM TOLERATED. ULISES LE ROM, STRETCHING AND STRENGTHENING. HEP INSTRUCTION. Balance/Gait/Functional tests Balance/Special Test Scores Oswestry Low Back Score: 6 Goals Goals Goal 1:: DECREASE C/O BACK AND LLE SX'S BY AT LEAST 25% TO EASE ADL'S. Goal Time Frame: 4-6 Weeks Goal Progress: Goal Met Goal 2:: PATIENT WILL HAVE INCREASED PAINFREE LUMBAR ROM ALL PLANES TO EASE ADL'S Goal Time Frame: 4-6 Weeks Goal Progress: Progressing Goal 3:: PATIENT WILL HAVE INCREASED STRENGTH OF ALL INVOLVED MUSCULATURE BY AT LEAST 1/2 MUSCLE GRADE. Goal Time Frame: 4-6 Weeks Goal Progress: Progressing Goal 4:: PATIENT WILL SCORE AT LEAST 5 POINTS BETTER ON BACK OSWESTRY QUESTIONNAIRE. Goal Time Frame: 4-6 Weeks Goal Progress: Goal Met Goal 5:: PATIENT WILL BE INDEP WITH LAND AND/OR WATER EX PROGRAMS FOR CONTINUED IMPROVEMENT ONCE FORMAL PHYSICAL THERPAY CONCLUDES. Goal Time Frame: 4-6 Weeks Goal Progress: Progressing Anticipated Interventions Anticipated Interventions Patient/Client Instruction: Educate patient on: Condition, Plan of Care and Risk Factors For the Purpose of:: To improve self management Therapeutic Exercise to Include: Strength training, Body mechanics, Postural training, Flexibilty training, Neuromotor development, In an aquatic setting and Dynamic Lumbar Stabilization For the Purpose of:: To decrease pain, To increase ROM, To improve muscle performance and motor function, To increase tolerance to activity/condition/position, To improve ability of physical actions for home/community/work/leisure, To improve gait and locomotor functions and To increase flexibility/ROM Re-Evaluation Ending Re-evaluation ending: Please do not hesitate to contact me at [phone] by phone or if you have questions or concerns regarding this new plan of care! Sincerely, Zhanna Rashid, PT, Cert MDT
--- NOTE | 2024-01-09 09:30 | HP.PT.NRP ---
Patient Information Patient Information: WEN PARKS was seen in my office for initial evaluation on 10/17/23. The following Plan of Care was established for this patient: POC Established Initial Frequency: 2-3x /Week Initial Duration: 4-6 Weeks Anticipated Interventions Patient/Client Instruction: Educate patient on: Condition, Plan of Care and Risk Factors For the Purpose of:: To improve self management Therapeutic Exercise to Include: Strength training, Body mechanics, Postural training, Flexibilty training, Neuromotor development, In an aquatic setting and Dynamic Lumbar Stabilization For the Purpose of:: To decrease pain, To increase ROM, To improve muscle performance and motor function, To increase tolerance to activity/condition/position, To improve ability of physical actions for home/community/work/leisure, To improve gait and locomotor functions and To increase flexibility/ROM Last Seen Last Seen: This patient was last seen in our office 11/21/23. Pertinent comments regarding their Physical therapy will appear below: It has been my pleasure to see this patient for a total of 8 visits. This patient has not returned to Physical Therapy for more visits and is appropriate to return to MD for further follow-up as needed. At this point I will be discontinuing this patient from physical therapy. I would be happy to see this patient again in the future if found appropriate by the physician. Thank you! Zhanna Rashid, PT, Cert MDT Balance/Gait/Functional tests Balance/Special Test Scores Oswestry Low Back Score: 6
== END 2023-11-21 19:00 | disposition home or self-care (01) ==
LOC: PT 10:30
PROVIDERS: PCP Student in an Organized Health Care Education/Training Program; Referring Provider Internal Medicine; Visit Provider Internal Medicine
DX: M54.50 Low back pain, unspecified (principal)
CPT/HCPCS: 97113; 97162; 97164; 97530

== ENCOUNTER → 2024-05-03 | Outpatient (CLI) | payer MEDICAID, SELFPAY | END | disposition home or self-care (01) | LOC: LABSPEC 16:01 | PROVIDERS: PCP Student in an Organized Health Care Education/Training Program; Referring Provider Surgery; Visit Provider Surgery | DX: L05.01 Pilonidal cyst with abscess (principal) | CPT/HCPCS: 87070; 87075; 87077; 87186; 87205 ==